=== PATIENT | male | born 1960 ===

== ENCOUNTER → 2019-10-20 19:03 | Outpatient (ROUT) | payer OTHER, SELFPAY ==
[2019-10-20 19:39] LABS: BUN Creatinine Ratio 15.4 (6-22); Blood Urea Nitrogen 16 mg/dL (9-20); Calcium 9.6 mg/dL (8.4-10.2); Carbon Dioxide 27 mmol/L (22-32); Chloride 104 mmol/L (98-107); Estimated Glomerular Filt Rate > 60.0 mL/min (>60); Glucose 72 mg/dL (80-110); HEMOLYSIS < 15 (0-50); Potassium 4.1 mmol/L (3.4-5.1); Sodium 138 mmol/L (137-145)
== END ==
PROVIDERS: Visit Provider Internal Medicine
DX: I10 Essential (primary) hypertension (principal)
CPT/HCPCS: 80048

== ENCOUNTER → 2019-12-08 15:21 | Outpatient (ROUT) | payer OTHER, SELFPAY ==
[2019-12-18 09:14] LABS: PSA Ultrasensitive 0.631 ng/mL (0.000-4.000); Percent Free Testosterone 3.45 % (1.50-4.20); Testosterone Free 7.06 ng/dL (5.00-21.00); Testosterone Total 204.6 ng/dL (264.0-916.0)
== END ==
PROVIDERS: Visit Provider Internal Medicine
DX: R79.89 Other specified abnormal findings of blood chemistry (principal)
CPT/HCPCS: 84153; 84402; 84403